=== PATIENT | female | born 1955 | race Caucasian/White ===

== ENCOUNTER 2017-04-21 13:12 | Outpatient (CLI) | payer MEDICAID ==
--- NOTE | 2017-04-21 13:46 | Mammography Report ---
Diagnostic right mammogram with CAD. History: Breast cancer survivor status post left mastectomy. Comparison study is dated August 15, 2013. Findings: There is intermediate density of the fibroglandular tissue, and the overall pattern is stable. No masses or architectural distortion is present. No suspicious calcifications are seen. Impression: No suspicious findings. BI-RADS code: 2. Recommendation: Annual screening.
== END 2017-04-21 13:13 | disposition home or self-care (01) ==
LOC: MAMMO 13:12
DX: R92.8 Other abnormal and inconclusive findings on diagnostic imaging of breast (principal); I10 Essential (primary) hypertension; Z85.3 Personal history of malignant neoplasm of breast; Z90.12 Acquired absence of left breast and nipple
CPT/HCPCS: G0206-RT

== ENCOUNTER 2022-02-11 11:17 | Outpatient (CLI) | payer MEDICARE ==
--- NOTE | 2022-02-11 15:06 | Nuclear Medicine Report ---
NUCLEAR MEDICINE BONE SCAN, WHOLE BODY INDICATION: C50.12. Breast cancer. Evaluate for metastasis. TECHNIQUE: 26.1 mCi of Tc-99m MDP were injected IV. Whole body images were obtained. COMPARISON: No relevant prior imaging study available. FINDINGS: Skeletal Structures: Fairly symmetric, likely degenerative uptake is present involving the shoulders , sternoclavicular joints, spine, left knee and bilateral feet. Skeletal Lesions: None. Soft Tissues: Normal. Kidneys: Normal, symmetric activity. Additional Findings: Mild contamination the perineum. Photopenic defect in the right knee is consiste nt with right knee replacement.. IMPRESSION: No evidence for osseous metastasis. Degenerative findings as described.. Signer Name: Lexx Santiago Jr, MD Signed: 02/11/2022 3:02 PM Workstation Name: [id number]
== END 2022-02-11 11:18 | disposition home or self-care (01) ==
LOC: NM 11:17
PROVIDERS: ATTEND Internal Medicine Hematology & Oncology
DX: C50.912 Malignant neoplasm of unspecified site of left female breast (principal)
CPT/HCPCS: 78306; A9503